=== PATIENT | female | born 1955 | race Caucasian/White ===

== ENCOUNTER 2019-03-29 09:55 | Day surgery (SDC) | payer OTHER, SELFPAY ==
[2019-03-29] VITALS (7 sets, daily range): BP systolic 119–142; BP diastolic 72–85; PULSE 61–75; RESP 13–16; TEMP 36.1–36.8; O2SAT 97–100; BMI 21.0
--- NOTE | 2019-03-29 | PATH_ITS ---
[facility] Accession Number: [id number] . 01 Material submitted: . PART A: colon - CECUM BIOPSY PART B: rectum - RECTUM BIOPSY X2 . 02 Diagnosis: A. Cecum, Biopsy: Tubular adenoma. . B. Rectum, Biopsy: Tubular adenoma. Inflammatory polyp. MRV/04/02/2019 . 02 Electronically signed: . Hansa Randall MD, Pathologist NPI- [id number] . 01 Gross description: . Part A: CECUM BIOPSY: Received in formalin are 3 fragment(s) of chacon, soft tissue measuring 0.4 x 0.3 x 0.3 cm to 0.3 x 0.2 x 0.1 cm submitted entirely in 1 cassette(s) Part B: RECTUM BIOPSY X2: Received in formalin are multiple fragment(s) of chacon, soft tissue measuring 0.5 x 0.4 x 0.2 cm in aggregate submitted entirely in 1 cassette(s) /CKI /CKI . 02 Pathologist provided ICD-10: D12.0, D12.8 . 02 CPT . 969794, [id number] Performed at: 01 [facility] [address] [facility] [address], [place], [place] [id number] MD Brien Quiroga MD Phone: [phone] Performed at: 02 [facility] [address] [place], [place] [id number] MD Hansa Randall MD Phone: [phone]
[2019-03-29] MEDS: SODIUM CHLORIDE 0.9% 1,000 ML 84 ML IV ×2 (11:12→13:12)
--- NOTE | 2019-03-29 12:28 | PM.HP.1 ---
History of Present Illness Date Patient Seen: 03/29/19 Time Patient Seen: 12:28 Chief complaint: [id number] SCREENING COLONOSCOPY Narrative: The patient is a woman here for screening colonoscopy. Last exam was 11 years ago. No family history of colon cancer. Patient History Medical History Anxiety (Acute) Depression (Acute) Hypertension (Acute) Neck pain (Acute) Surgical History (Updated 03/29/19 @ 12:29 by Lj Waldrop MD) Status post emergency section (Resolved) Status post surgery (12/27/10) Social History household members: spouse Family & Social History Social History: household members spouse Meds Home Medications Medication Instructions Recorded Confirmed Type ascorbic acid (vitamin C) [Vitamin 1 tab PO Q OTHER DAY #0 12/27/10 03/29/19 History C] calcium carbonate [Calcium 600] 600 mg PO DAILY #0 12/27/10 03/29/19 History coenzyme Q10 [CoQ-10] 30 mg PO DAILY #0 12/27/10 03/29/19 History multivitamin 1 tab PO DAILY #0 12/27/10 03/29/19 History lisinopril 10 mg PO DAILY 03/29/19 03/29/19 History venlafaxine [Effexor XR] 225 mg PO DAILY 03/29/19 03/29/19 History Allergies Allergy/AdvReac Type Severity Reaction Status Date / Time cyclobenzaprine Allergy Mild Rash Verified 03/29/19 10:55 [From Flexeril] Review of Systems Review of Systems All systems reviewed & are unremarkable except as noted in HPI and below Psychiatric Comments: Depression and anxiety Exam Vital Signs (past 8 hours): - 03/29/19 11:04 Temperature 97.8 F Pulse Rate 73 Respiratory Rate 15 Blood Pressure 142/85 H Pulse Oximetry 100 Oxygen Delivery Method Room Air Narrative Exam Narrative: Pleasant cooperative patient no apparent distress. Lungs are clear to auscultation. No rales or rhonchi. Heart regular rate and rhythm no murmur gallop. Abdomen is soft nontender without mass. No obvious hernias. Patient is alert and oriented x3.
--- NOTE | 2019-03-29 12:30 | PM.PREOP ---
Pre-operative Note Interval Note History & Physical reviewed/Exam performed by Physician: Yes Changes to H&P: No ASA Class (for procedural sedation): II
[2019-03-29] MEDS: MIDAZOLAM 5 MG/5 ML VIAL IV (13:08)
--- NOTE | 2019-03-29 13:11 | PM.OP.ENDO ---
Operative Date/Time/Diagnoses Date of procedure: 03/29/19 Time of procedure: 13:11 Pre-op diagnosis: Screening examination. Last exam 11 years ago. Post-op diagnosis: same (Cecal polyp and rectal polyps. Tortuous colon) Procedure & Clinicians Study performed: Colonoscopy with cold biopsy Same procedure as scheduled: Yes Indications: Screening Surgeon: Lj Waldrop Procedure Notes SCOAP/Timeout: Performed Procedure in detail: The patient was placed in the left lateral decubitus position and underwent IV sedation directed by the surgeon consisting of fentanyl and Versed. Digital exam was unremarkable. The scope was inserted and advanced through the rectum into the sigmoid, descending, transverse, and ascending colon. The patient had a very tortuous colon. We had to reposition the patient, insert a stiffener, apply pressure in order to reach the cecum. The cecum was reached identified by the ileocecal valve. There was a polyp within it and this was biopsied and removed. The ileocecal valve was then successfully cannulated. The terminal ileum was normal in appearance. The scope was gradually brought out. Additional Polyps were found at the rectum. The scope ultimately was retroflexed in the rectum. The appearance was normal. The scope was removed and the patient tolerated the procedure well. Prep was very good. Scope withdrawal time: 9.5 min excludes biopsy time Sedation minutes: 34 Findings: polyp (Three small polyps removed) Specimen(s): other (Polyps) Complications: none Recommendations: Colonscopy in 5 years Follow up: as needed Disposition: PACU
== END 2019-03-29 14:19 | disposition home or self-care (01) ==
PROVIDERS: PCP Family Medicine; Visit Provider Specialist
PROC: 0DJD8ZZ Inspection of Lower Intestinal Tract, Via Natural or Artificial Opening Endoscopic (ICD-10-PCS; CPT 45378; principal; 2019-03-29 11:45)
DX: Z12.11 Encounter for screening for malignant neoplasm of colon (principal); D12.0 Benign neoplasm of cecum; D12.8 Benign neoplasm of rectum
CPT/HCPCS: 45380; 99152; 99153; J2250

== ENCOUNTER 2020-01-27 11:15 | Outpatient (RCR) | payer OTHER, SELFPAY ==
--- NOTE | 2020-01-20 11:53 | PT.OIE ---
Current Diagnoses Unspecified urinary incontinence (01/20/20) Past Medical History (Last Reviewed 03/29/19 @ 12:28 by Lj Waldrop MD) Anxiety (Acute) Depression (Acute) Hypertension (Acute) Neck pain (Acute) Past Surgical History (Last Updated 03/29/19 @ 12:29 by Lj Waldrop MD) Status post emergency section (Resolved) Status post surgery (12/27/10) Visit Care Team Role Provider Type Murphy Jones MD Attending Provider Physician Primary Care Provider Referring Provider Specialty: [facility] Address: [address] [place] [address] [place], [place], [facility] Email: [email or web address] Physical Therapy Initial Evaluation PT-OP-A Visit Information Start: 01/20/20 08:14 Freq: Status: Active Protocol: Document 01/20/20 09:59 LRN (Rec: 01/20/20 11:37 LRN [id number]) Out-Patient Physical Therapy Visit Information Visit Information Visit Type Initial Evaluation Visit Start Time 09:59 Visit Stop Time 10:39 Total Visit Minutes 40 Visit Number 1 Evaluation Information Evaluation Date 01/20/20 Precautions Precautions Per intake form, Hx of: Neck pain Osteopenia Depression ?Fibromyalgia PT-OP-B Current Condition Start: 01/20/20 08:14 Freq: Status: Active Protocol: Document 01/20/20 09:59 LRN (Rec: 01/20/20 11:37 LRN [id number]) Current Condition History of Current Condition Onset Date Last couple years Current Complaints Urinary leakage with cough, sneeze, lifting, urge. History of Current Condition Comes and goes, some weeks doesn't have it. Coughs , sneeze, lifting something, with urge if ignoring urge. Denies constipation. Prior Treatments and Tests Has done Kegels, doesn't seem to be helpful. Developmental History Developmental History Has had 2 children, both C- section. No complications. Treatment Goals Patient/Caregiver Goals Pt goal with therapy is to not leak with coughing, or laughing too hard. Not to leak with lifting 10# bag of dog food. 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 Baseline Function- Other Rare occurrence of leakage. Current Functional Impairments (Reported) Functional Limitations- ADL's Leakage if urgency and not paying attention to it. Sometimes feels like she has to go 1/2 hour after urinating , but she doesn't. Functional Limitations- Other Urinary leakage with lifting 10# of dog food. Personal Factors Other Personal Factors That May Effect Neck pain Therapy/Recovery High Blood Pressure & Depression controlled by meds. PT-OP-C Subjective Start: 01/20/20 08:14 Freq: Status: Active Protocol: Document 01/20/20 09:59 LRN (Rec: 01/20/20 11:37 LRN [id number]) Patient Questionnaires Pelvic Pain and Urgency/Frequency Patient Symptom Scale Pelvic Pain Score 10 OP-PT Pain Assessment Pain Assessment Grid Paper Pain Assessment Grid Completed Yes Location Bilateral neck & shoulders Pain Location Details Sandoval cervical paraspinals, intrascapular & around scapulas, subacromial Intensity 3 Scale Used Numeric (1 - 10) PT-OP-I Pelvic Floor Start: 01/20/20 08:14 Freq: Status: Active Protocol: Document 01/20/20 09:59 LRN (Rec: 01/20/20 11:37 LRN [id number]) Pelvic Floor Assessment Urine Pelvic Floor Surgery No Leakage Size Small Leakage Cause Cough,Lifting,Urge Leaks Per Day 0 Voiding Frequency 6 Nocturia 2 Pads Used In 24 Hours 0-2 Urine Pad Type Panty Liner Pelvic Clock Pelvic Clock 3-6 Atrophy Pelvic Clock 6-9 Tightness Prolapse Cystocele Grade 2 Perineal Descent Resting Present Bearing Present Contraction Ability Voluntary Contraction Moderate Voluntary Relaxation Weak Manual Muscle Testing Left 2 Manual Muscle Testing Right 3 Manual Muscle Testing Anterior 0 Manual Muscle Testing Posterior 2 Muscle Endurance (Seconds) 5 Number of Quick Contractions In 10 10 Seconds Comments Pelvic Floor Comments Strength above per vaginal digital assessment: Quick Flicks: Contractions felt but variable in strength. Long Holds: Loss of strength after ~5 secs. PT-OP-J Posture/Palpation/Skin Start: 01/20/20 08:25 Freq: Status: Active Protocol: Document 01/20/20 09:59 LRN (Rec: 01/20/20 11:37 LRN [id number]) Posture Evaluation Position Standing Evaluation View All positions Head/C-Spine Posture Forward Head L-Spine Posture Increased Lordosis Pelvis Posture Anteriorly Tilted Foot Arch (R) High Arch,(L) Medium Arch Comments Posture Comments Bunions bilaterally. PT-OP-K Range of Motion Start: 01/20/20 08:14 Freq: Status: Active Protocol: Document 01/20/20 09:59 LRN (Rec: 01/20/20 11:37 LRN [id number]) Lumbar Spine Range of Motion Lumbar Spine Active Degrees Testing Position Standing Flexion 78 Extension 15 Lateral Flexion Left 8 Lateral Flexion Right 10 ROM Limitations Soft Tissue Tightness Hip Goniometric Range of Motion Hip Right Passive Testing Position Supine Straight Leg Raise 70 Internal Rotation 50 External Rotation 65 Left Passive Testing Position Supine Straight Leg Raise 70 Internal Rotation 50 External Rotation 45 PT-OP-M Strength Start: 01/20/20 08:14 Freq: Status: Active Protocol: Document 01/20/20 09:59 LRN (Rec: 01/20/20 11:37 LRN [id number]) Trunk Strength Trunk Manual Muscle Testing Rotation Left 3 Fair Core Stabilization Pt not able to maintain core stability with MMT of hip extensors. Hip Strength Hip Manual Muscle Testing Right Reason Not Measured WFL Left Extension (S1) 4 Good Comments Generally 5/5 except hip extension above. PT-OP-Q Treatments Start: 01/20/20 08:14 Freq: Status: Active Protocol: Document 01/20/20 09:59 LRN (Rec: 01/20/20 11:37 LRN [id number]) Therapeutic Exercises Supine Exercises Deep breathing. Supine Exercise Name Deep breathing Reps/Minutes 1' Comments Uses chest and abdomen, good abdominal excursion. Self-Care/Home Management Treatment Education Patient Education Home Exercise Program Other Education Reviewed & discussed with pt outcome of assessment. Discussed/explained & educated pt in usage and completion of bladder diary for 7 days. Activities Self-Care/Home Management Activities Issued & reviewed HEP: Kegels for Quick Flicks and Long holds, but I/S pt to focus on Quick Flicks until next session after EMG biofeedback. Discussed & reviewed timing and reps for Quick Flicks. PT-OP-T Assessment and Plan Start: 01/20/20 08:14 Freq: Status: Active Protocol: Document 01/20/20 09:59 LRN (Rec: 01/20/20 11:37 LRN [id number]) Physical Therapy Assessment Rehab Potential Rehabilitation Potential Excellent Evaluation Complexity Number of Personal Factors/Comorbidities 1-2 Number of Body Systems Impaired 3 Clinical Presentation at Evaluation Evolving Impairments Impairments Activity Tolerance,ROM, Strength Goals Four Impairment Poor coordination of breathing with PF contractions. Short Term Goal (STG) Pt will be able to demonstrate coordinated breathing with PF contractions (LE roll in/outs with deep breathing), and be able to coordinate breathing with functional activities to minimize strain on PF. STG Duration 02/24/20 Cable Worker Helper Goal (LTG) Pt will be able to lift 10# ( bag of dog food) without urinary leakage. LTG Duration 04/19/20 Three Impairment PF weakness Short Term Goal (STG) Pt unable to perform an isolated PF contraction STG Duration 02/10/20 Residential Goal (LTG) Pt will not leak with coughing , or laughing too hard. LTG Duration 03/16/20 Two Impairment Decreased hip mobility with asymmetry of movement Short Term Goal (STG) Pt will be educated in HEP of hip stretches. STG Duration 02/03/20 Residential Goal (LTG) Pt will demonstrate symmetry of hip mobility for ER/IR and improved PSLR. LTG Duration 03/16/20 One Impairment Lacks appropriate self care HEP. Cable Worker Helper Goal (LTG) Pt will be independent in a comprehensive self care HEP. LTG Duration 04/19/20 Assessment Summary Assessment Pt presents with stress urinary incontinence. She leaks with a strong urge when she defers urination in the presence of an urge. She has decreased hip mobility, most notable with PSLR, hip ER, L>R and left trunk sidebend. She may have a slight pelvic obliquity of a slight long leg R and outflare. She has tightness of the PF on the R and weakness on the L. She doesn't appear to relax fully between contractions and she is not able to isolate her PF contractions and visibly uses her Abdominals and hip AD's to assist. The pt will benefit from further physical therapy to improve PF strength and coordination of contractions, improve symmetry of hip mobility, educate pt in coordination of breathing with functional activities and placement on a self care HEP. The pt's rehab may be prolonged due to the current health care concerns of the Corono Virus. Physical Therapy Plan Frequency and Duration Frequency of Treatment 1x/Week Plan of Care Start Date 01/20/20 Plan of Care End Date 04/19/20 Therapeutic Interventions Therapeutic Interventions Home Exercise Program,Manual Therapy,Patient/Caregiver Education,Self-Care/Home Management,Soft Tissue Mobilization,Therapeutic Exercises Modalities Electric Stimulation Next Visit Focus/Plan Next Note Type Treatment Note Next Visit Plan Check core stability/trunk strength, EMG biofeedback session, review of PF contraction in isolation of accessory ms, HEP stretches: hip and possibly PF mobility ex's, and progress PF strengthening in isolation of the TA & Hip AD's, functional training with coordination of breathing.
--- NOTE | 2020-01-20 11:53 | PT.OPPOC ---
Physical, Occupational & Speech Therapy At [facility] Current Diagnoses Unspecified urinary incontinence (01/20/20) Visit Care Team Role Provider Type Murphy Jones MD Attending Provider Physician Primary Care Provider Referring Provider Specialty: Family Practice Address: [address] [place] [address], [facility] [place], [address] Email: [email or web address] Plan Of Care PT-OP-T Assessment and Plan Start: 01/20/20 08:14 Freq: Status: Active Protocol: Document 01/20/20 09:59 LRN (Rec: 01/20/20 11:37 LRN [id number]) Physical Therapy Assessment Rehab Potential Rehabilitation Potential Excellent Evaluation Complexity Number of Personal Factors/Comorbidities 1-2 Number of Body Systems Impaired 3 Clinical Presentation at Evaluation Evolving Impairments Impairments Activity Tolerance,ROM, Strength Goals Four Impairment Poor coordination of breathing with PF contractions. Short Term Goal (STG) Pt will be able to demonstrate coordinated breathing with PF contractions (LE roll in/outs with deep breathing), and be able to coordinate breathing with functional activities to minimize strain on PF. STG Duration 02/24/20 Mcc Goal (LTG) Pt will be able to lift 10# ( bag of dog food) without urinary leakage. LTG Duration 04/19/20 Three Impairment PF weakness Short Term Goal (STG) Pt unable to perform an isolated PF contraction STG Duration 02/10/20 Case Resolution Specialist Goal (LTG) Pt will not leak with coughing , or laughing too hard. LTG Duration 03/16/20 Two Impairment Decreased hip mobility with asymmetry of movement Short Term Goal (STG) Pt will be educated in HEP of hip stretches. STG Duration 02/03/20 Mcc Goal (LTG) Pt will demonstrate symmetry of hip mobility for ER/IR and improved PSLR. LTG Duration 03/16/20 One Impairment Lacks appropriate self care HEP. Case Resolution Specialist Goal (LTG) Pt will be independent in a comprehensive self care HEP. LTG Duration 04/19/20 Assessment Summary Assessment Pt presents with stress urinary incontinence. She leaks with a strong urge when she defers urination in the presence of an urge. She has decreased hip mobility, most notable with PSLR, hip ER, L>R and left trunk sidebend. She may have a slight pelvic obliquity of a slight long leg R and outflare. She has tightness of the PF on the R and weakness on the L. She doesn't appear to relax fully between contractions and she is not able to isolate her PF contractions and visibly uses her Abdominals and hip AD's to assist. The pt will benefit from further physical therapy to improve PF strength and coordination of contractions, improve symmetry of hip mobility, educate pt in coordination of breathing with functional activities and placement on a self care HEP. The pt's rehab may be prolonged due to the current health care concerns of the Corono Virus. Physical Therapy Plan Frequency and Duration Frequency of Treatment 1x/Week Plan of Care Start Date 01/20/20 Plan of Care End Date 04/19/20 Therapeutic Interventions Therapeutic Interventions Home Exercise Program,Manual Therapy,Patient/Caregiver Education,Self-Care/Home Management,Soft Tissue Mobilization,Therapeutic Exercises Modalities Electric Stimulation Next Visit Focus/Plan Next Note Type Treatment Note Next Visit Plan Check core stability/trunk strength, EMG biofeedback session, review of PF contraction in isolation of accessory ms, HEP stretches: hip and possibly PF mobility ex's, and progress PF strengthening in isolation of the TA & Hip AD's, functional training with coordination of breathing. Plan of Care Dates Plan of Care Start Date 01/20/20 Plan of Care End Date 04/19/20 Electronically Signed by: Anali Moise, PT 01/20/20 1795 Please Sign and Return: I have reviewed this Plan of Care and certify that the skilled therapy services above are required to meet the patient?s needs. Physician Signature Date Printed Name and Credentials Clinical Instructor Signature Printed Name and Credentials
--- NOTE | 2020-01-27 14:00 | PT.OTN ---
Current Diagnoses Unspecified urinary incontinence (01/27/20) Physical Therapy Treatment Note PT-OP-A Visit Information Start: 01/20/20 08:14 Freq: Status: Active Protocol: Document 01/27/20 11:32 LRN (Rec: 01/27/20 12:37 LRN [id number]) Out-Patient Physical Therapy Visit Information Visit Information Visit Start Time 11:32 Visit Stop Time 12:35 Total Visit Minutes 63 Visit Number 2 Evaluation Information Evaluation Date 01/20/20 Precautions Precautions Per intake form, Hx of: Neck pain Osteopenia Depression ?Fibromyalgia PT-OP-B Current Condition Start: 01/20/20 08:14 Freq: Status: Active Protocol: Document 01/20/20 09:59 LRN (Rec: 01/20/20 11:37 LRN [id number]) Current Condition History of Current Condition Onset Date Last couple years Current Complaints Urinary leakage with cough, sneeze, lifting, urge. History of Current Condition Comes and goes, some weeks doesn't have it. Coughs , sneeze, lifting something, with urge if ignoring urge. Denies constipation. Prior Treatments and Tests Has done Kegels, doesn't seem to be helpful. Developmental History Developmental History Has had 2 children, both C- section. No complications. Treatment Goals Patient/Caregiver Goals Pt goal with therapy is to not leak with coughing, or laughing too hard. Not to leak with lifting 10# bag of dog food. 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 Baseline Function- Other Rare occurrence of leakage. Current Functional Impairments (Reported) Functional Limitations- ADL's Leakage if urgency and not paying attention to it. Sometimes feels like she has to go 1/2 hour after urinating , but she doesn't. Functional Limitations- Other Urinary leakage with lifting 10# of dog food. Personal Factors Other Personal Factors That May Effect Neck pain Therapy/Recovery High Blood Pressure & Depression controlled by meds. PT-OP-C Subjective Start: 01/20/20 08:14 Freq: Status: Active Protocol: Document 01/27/20 11:32 LRN (Rec: 01/27/20 12:37 LRN [id number]) OP-PT Subjective Patient Comments Patient Comments States she did her bladder diary. PT-OP-I Pelvic Floor Start: 01/20/20 08:14 Freq: Status: Active Protocol: Document 01/27/20 11:32 LRN (Rec: 01/27/20 12:37 LRN [id number]) Pelvic Floor Assessment SEMG (uV) Baseline 1.1 Quick Contraction 11.2 10 Second Contraction 12.6 Recruitment Pattern Good Relaxation Fair Holding Poor/Slow Stability of Hold Poor/Slow SEMG Stability of Rest Fair Comments Pelvic Floor Comments PF avg resting tone (20 reps) Quick flicks - 4.7 uV's Long holds - 3.6 uV's After long holds avg strength was 2.6, after deep breathing, 3.0 PT-OP-J Posture/Palpation/Skin Start: 01/20/20 08:25 Freq: Status: Active Protocol: Document 01/20/20 09:59 LRN (Rec: 01/20/20 11:37 LRN [id number]) Posture Evaluation Position Standing Evaluation View All positions Head/C-Spine Posture Forward Head L-Spine Posture Increased Lordosis Pelvis Posture Anteriorly Tilted Foot Arch (R) High Arch,(L) Medium Arch Comments Posture Comments Bunions bilaterally. PT-OP-K Range of Motion Start: 01/20/20 08:14 Freq: Status: Active Protocol: Document 01/20/20 09:59 LRN (Rec: 01/20/20 11:37 LRN [id number]) Lumbar Spine Range of Motion Lumbar Spine Active Degrees Testing Position Standing Flexion 78 Extension 15 Lateral Flexion Left 8 Lateral Flexion Right 10 ROM Limitations Soft Tissue Tightness Hip Goniometric Range of Motion Hip Right Passive Testing Position Supine Straight Leg Raise 70 Internal Rotation 50 External Rotation 65 Left Passive Testing Position Supine Straight Leg Raise 70 Internal Rotation 50 External Rotation 45 PT-OP-M Strength Start: 01/20/20 08:14 Freq: Status: Active Protocol: Document 01/27/20 11:32 LRN (Rec: 01/27/20 13:55 LRN [id number]) Trunk Strength Trunk Manual Muscle Testing Testing Position Sitting Reason Not Measured WFL Comments Pt has poor reflexive contractability. PT-OP-Q Treatments Start: 01/20/20 08:14 Freq: Status: Active Protocol: Document 01/27/20 11:32 LRN (Rec: 01/27/20 12:48 LRN [id number]) Therapeutic Exercises Supine Exercises Long Hold Supine Exercise Name 10 sec holds/10 sec relaxation , legs on bolster towel roll for probe Reps/Minutes 4' Quick Flicks Supine Exercise Name Quick PF contractions, breathing, Legs on bolster, towel roll for probe Reps/Minutes 4' Comments Pt practiced contractions with breathing. Deep breathing. Supine Exercise Name Deep breathing training for abdominal vs chest breathing Reps/Minutes 4' Comments Chest breathing first, good abdominal excursion. Neuro Re-Education Treatment Other Activities EMG Awareness trianing Details Awareness training of PF activity with body movements and talking/laughing Reps/Duration 4' Comments Extra time taken for pt to place electrode in for 1st time. EMG Biofeedback Details PF relaxation training, PF Quick Flicks & Long hold exercise Reps/Duration 12' Comments Pt unable to relax PF with deep breathing, verbal cuing, & visual feedback. Self-Care/Home Management Treatment Education Patient Education Home Exercise Program Other Education Reviewed bladder diary, discussed daily routines & made recommendations for changes. Educated pt in breathing effects on abdominal region ( piston effect), followed by practice of breathing. Activities Self-Care/Home Management Activities -Educated, reviewed & issued handout for bladder retraining . -Educated, reviewed, discussed at length & issued handout for dietary recommendations. -Verbal I/S for Happy Baby Pose stretch between PF long hold contractions if she is able to perform them with a relaxation. -Educated, & reviewed deep breathing. -Educated, reviewed, and demonstrated functional activities using proper breathing for coughing, sneezing, squatting, lifting, transfers. -Issued & reviewed HEP: LE roll in/outs for movement and breathing to start. Pt cleared to do PF contraction but to focus on proper breathing & muscle relaxation. If not able to relaxation, she is to hold on PF contraction during roll in/ outs. PT-OP-T Assessment and Plan Start: 01/20/20 08:14 Freq: Status: Active Protocol: Document 01/27/20 11:32 LRN (Rec: 01/27/20 12:37 LRN [id number]) Physical Therapy Assessment Goals Four Impairment Poor coordination of breathing with PF contractions. Short Term Goal (STG) Pt will be able to demonstrate coordinated breathing with PF contractions (LE roll in/outs with deep breathing), and be able to coordinate breathing with functional activities to minimize strain on PF. STG Duration 02/24/20 Blackjack Pit Boss Goal (LTG) Pt will be able to lift 10# ( bag of dog food) without urinary leakage. LTG Duration 04/19/20 Three Impairment PF weakness Short Term Goal (STG) Pt unable to perform an isolated PF contraction STG Duration 02/10/20 [place] [employer] Goal (LTG) Pt will not leak with coughing , or laughing too hard. LTG Duration 03/16/20 Two Impairment Decreased hip mobility with asymmetry of movement Short Term Goal (STG) Pt will be educated in HEP of hip stretches. STG Duration 02/03/20 Usp Goal (LTG) Pt will demonstrate symmetry of hip mobility for ER/IR and improved PSLR. LTG Duration 03/16/20 One Impairment Lacks appropriate self care HEP. Blackjack Pit Boss Goal (LTG) Pt will be independent in a comprehensive self care HEP. LTG Duration 04/19/20 (01/27/20: Progressing) Assessment Summary Assessment Pt uses abdominals and holds breath during PF contractions. She tends to push the probe out during contractions and required a towel roll in place to hold probe in place. Pt pushing out probe, probably due to poor coordination of her PF muscles with contractions. Her core strength is good, but she shows decreased core reflexive ability. Her resting tone elevates after PF strengthening exercises and she is not able to relax her PF once it elevates, even with deep breathing, verbal cuing and visual EMG feedback. The pt needs further relaxation training, followed by strengthening. Physical Therapy Plan Frequency and Duration Frequency of Treatment 1x/Week Plan of Care Start Date 01/20/20 Plan of Care End Date 04/19/20 Next Visit Focus/Plan Next Note Type Treatment Note Next Visit Plan Check core stability/trunk strength, EMG biofeedback session, review of PF contraction in isolation of accessory ms, HEP stretches: hip and possibly PF mobility ex's, and progress PF strengthening in isolation of the TA & Hip AD's, functional training with coordination of breathing.
--- NOTE | 2020-03-09 13:25 | PT.OPDS ---
Current Diagnoses Unspecified urinary incontinence (01/27/20) Visit Care Team Role Provider Type Murphy Jones MD Attending Provider Physician Primary Care Provider Referring Provider Specialty: [facility] Address: [address] [place] [address], Rust A, [place], [place], [facility] Email: [email or web address] Visit Number Visit Number 2 Discharge Summary PT-OP-B Current Condition Start: 01/20/20 08:14 Freq: Status: Active Protocol: Document 01/20/20 09:59 LRN (Rec: 01/20/20 11:37 LRN [id number]) Current Condition History of Current Condition Onset Date Last couple years Current Complaints Urinary leakage with cough, sneeze, lifting, urge. History of Current Condition Comes and goes, some weeks doesn't have it. Coughs , sneeze, lifting something, with urge if ignoring urge. Denies constipation. Prior Treatments and Tests Has done Kegels, doesn't seem to be helpful. Developmental History Developmental History Has had 2 children, both C- section. No complications. Treatment Goals Patient/Caregiver Goals Pt goal with therapy is to not leak with coughing, or laughing too hard. Not to leak with lifting 10# bag of dog food. 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 Baseline Function- Other Rare occurrence of leakage. Current Functional Impairments (Reported) Functional Limitations- ADL's Leakage if urgency and not paying attention to it. Sometimes feels like she has to go 1/2 hour after urinating , but she doesn't. Functional Limitations- Other Urinary leakage with lifting 10# of dog food. Personal Factors Other Personal Factors That May Effect Neck pain Therapy/Recovery High Blood Pressure & Depression controlled by meds. PT-OP-T Assessment and Plan Start: 01/20/20 08:14 Freq: Status: Active Protocol: Document 03/09/20 12:52 LRN (Rec: 03/09/20 13:25 LRN [id number]) Physical Therapy Assessment Goals Four Impairment Poor coordination of breathing with PF contractions. Short Term Goal (STG) Pt will be able to demonstrate coordinated breathing with PF contractions (LE roll in/outs with deep breathing), and be able to coordinate breathing with functional activities to minimize strain on PF. (03/09/20: GOAL NOT MET. Pt was seen only for initial evaluation due to restrictions from Covid 19 outbreak). STG Duration 02/24/20 Retirement Goal (LTG) Pt will be able to lift 10# ( bag of dog food) without urinary leakage. (03/09/20: GOAL NOT MET. Pt was seen only for initial evaluation due to restrictions from Covid 19 outbreak). LTG Duration 04/19/20 Three Impairment PF weakness Short Term Goal (STG) Pt unable to perform an isolated PF contraction. (03/09/20: GOAL NOT MET. Pt was seen only for initial evaluation due to restrictions from Covid 19 outbreak). STG Duration 02/10/20 Retirement Goal (LTG) Pt will not leak with coughing , or laughing too hard. (03/09/20: GOAL NOT MET. Pt was seen only for initial evaluation due to restrictions from Covid 19 outbreak). LTG Duration 03/16/20 Two Impairment Decreased hip mobility with asymmetry of movement Short Term Goal (STG) Pt will be educated in HEP of hip stretches. (03/09/20: GOAL NOT MET. Pt was seen only for initial evaluation due to restrictions from Covid 19 outbreak). STG Duration 02/03/20 Retirement Goal (LTG) Pt will demonstrate symmetry of hip mobility for ER/IR and improved PSLR. (03/09/20: GOAL NOT MET. Pt was seen only for initial evaluation due to restrictions from Covid 19 outbreak). LTG Duration 03/16/20 One Impairment Lacks appropriate self care HEP. Retirement Goal (LTG) Pt will be independent in a comprehensive self care HEP. (03/09/20: GOAL NOT MET. Pt was seen only for initial evaluation and was issued a HEP of PF strengthening ( [place], roll in/outs) & stretching ex's; reviewed bladder retraining, dietary recommmendations, deep breathing & recommendations for functional activities. Pt to monitor for PF relaxation as well. Due to restrictions from Covid 19 outbreak no further therapy was given). LTG Duration 04/19/20 (01/27/20: Progressing) Assessment Summary Assessment Pt was seen for an initial visit and one therapy session on 01/27/20. The pt was not available for further therapy and has chose to discharge from physical therapy due to Covid 19 outbreak. Pt would benefit from further physical therapy, but understands she will need a new referral to return to therapy. Physical Therapy Plan Discharge Physical Therapy Discharge Comments Pt has chosen to discharge from therapy at this time due to Covid-19 outbreak.
== END 2020-03-19 09:53 ==
LOC: PHYS 11:15
PROVIDERS: PCP Family Medicine; Referring Provider Family Medicine; Visit Provider Family Medicine
DX: R32 Unspecified urinary incontinence (principal)
CPT/HCPCS: 97110; 97112; 97162; 97535

== ENCOUNTER → 2020-05-12 14:09 | Outpatient (CLI) | payer OTHER, SELFPAY | PROVIDERS: PCP Family Medicine; Referring Provider Family Medicine; Visit Provider Family Medicine | DX: M85.851 Other specified disorders of bone density and structure, right thigh (principal); Z78.0 Asymptomatic menopausal state; Z87.891 Personal history of nicotine dependence; Z82.62 Family history of osteoporosis | CPT/HCPCS: 77080 ==

== ENCOUNTER → 2020-07-21 15:29 | Outpatient (CLI) | payer OTHER, SELFPAY ==
[2020-07-21 17:01] LABS: Progesterone, Total 0.31 ng/mL
== END ==
PROVIDERS: PCP Family Medicine; Referring Provider Family Medicine; Visit Provider Nurse Practitioner Family
DX: N95.1 Menopausal and female climacteric states (principal)
CPT/HCPCS: 36415; 84144